=== PATIENT | male | born 1990 ===

== ENCOUNTER 2017-12-04 11:53 | Emergency (ER) | payer OTHER ==
[2017-12-04 12:05] VITALS: BMI 25.7
[2017-12-04 12:07] VITALS: BP 115/68; PULSE 56; RESP 20; TEMP 98.3; O2SAT 99
--- NOTE | 2017-12-04 13:02 | ED PDOC ---
HPI: Chest Pain Time Seen by Provider: 12/04/17 12:28 Chief Complaint (Nursing): Chest Pain Chief Complaint (Provider): Rib pain History Per: Patient History/Exam Limitations: no limitations Additional Complaint(s): Pt states he was elbowed one week ago while playing soccer, presents pain to L chest wall, worse with deep breaths, has not taken medication for pain. Denies fever, cough, SOB. Past Medical History Reviewed: Nursing Documentation, Vital Signs Vital Signs: Last Vital Signs Temp 98.3 F 12/04/17 12:06 Pulse 56 L 12/04/17 12:06 Resp 20 12/04/17 12:06 BP 115/68 12/04/17 12:06 Pulse Ox 99 12/04/17 13:03 - Medical History PMH: No Chronic Diseases - Family History Family History: States: Unknown Family Hx - Social History Current smoker - smoking cessation education provided: No Alcohol: None - Home Medications Home Medications: Ambulatory Orders Medication Instructions Recorded Naproxen [Naprosyn] 500 mg PO BID PRN #15 tablet 12/04/17 - Allergies Allergies/Adverse Reactions: Allergies Allergy/AdvReac Type Severity Reaction Status Date / Time No Known Allergies Allergy Verified 12/04/17 12:45 Review of Systems Constitutional: Negative for: Fever, Chills Cardiovascular: Positive for: Chest Pain (Chest wall). Negative for: Palpitations Respiratory: Negative for: Cough, Shortness of Breath Musculoskeletal: Negative for: Neck Pain, Back Pain Skin: Negative for: Rash, Lesions Neurological: Negative for: Headache Physical Exam - Reviewed Nursing Documentation Reviewed: Yes Vital Signs Reviewed: Yes - Physical Exam Appears: Positive for: Well, No Acute Distress Head Exam: Positive for: ATRAUMATIC, NORMAL INSPECTION Skin: Positive for: Normal Color, Warm, Dry Eye Exam: Positive for: Normal appearance, EOMI, PERRL Cardiovascular/Chest: Positive for: Regular Rate, Rhythm. Negative for: Chest Non Tender (TTP inferior to L nipple) Respiratory: Positive for: Normal Breath Sounds Extremity: Positive for: Normal ROM Neurologic/Psych: Positive for: Alert, Oriented - ECG O2 Sat by Pulse Oximetry: 99 Medical Decision Making Medical Decision Makin yo male with L sided chest wall pain. - XR L ribs - Toradol Accession No. : [id number] Patient Name / ID : KELLY [id number] / [id number] Exam Date : 12/04/2017 13:01:08 ( Approved ) Study Comment : Sex / Age : M / 27Y Creator : Tayo Nelson MD Dictator : Tayo Nelson MD Sleeve Bottom Feller : After School Counselor : Tayo Nelson MD Approver2 : Report Date : 12/04/2017 19:26:40 My Comment : PROCEDURE: Radiographs of the Chest and Left Ribs. HISTORY: L anterior rib pain COMPARISON: None available. TECHNIQUE: Frontal radiograph of the chest and multiple oblique radiographs of the left ribs were obtained. FINDINGS: LEFT RIBS: No fracture or focal lesion visualized. LUNGS: Clear. PLEURA: No pneumothorax or pleural fluid. CARDIOVASCULAR: Normal sized heart. No pulmonary vascular congestion. OTHER FINDINGS: None. IMPRESSION: Unremarkable radiographs of the chest and left ribs. No left rib fracture. Disposition - Clinical Impression Clinical Impression: Chest wall contusion - Disposition Referrals: [facility] [place] [Outside] Disposition: Routine/Home Disposition Time: 14:25 Condition: GOOD Prescriptions: Naproxen [Naprosyn] 500 mg PO BID PRN #15 tablet PRN Reason: Pain, Moderate (4-7) Instructions: Bruised Rib Forms: [employer] ([place]) Print Language: JAPANESE
--- NOTE | 2017-12-04 19:28 | RAD ---
PROCEDURE: Radiographs of the Chest and Left Ribs. HISTORY: L anterior rib pain COMPARISON: None available. TECHNIQUE: Frontal radiograph of the chest and multiple oblique radiographs of the left ribs were obtained. FINDINGS: LEFT RIBS: No fracture or focal lesion visualized. LUNGS: Clear. PLEURA: No pneumothorax or pleural fluid. CARDIOVASCULAR: Normal sized heart. No pulmonary vascular congestion. OTHER FINDINGS: None. IMPRESSION: Unremarkable radiographs of the chest and left ribs. No left rib fracture.
== END 2017-12-04 15:23 | disposition home or self-care (01) ==
LOC: H.ER 11:53 → SUPCPDRO 11:53 → H.ER 15:23
DX: S20.219A Contusion of unspecified front wall of thorax, initial encounter (principal); W50.0XXA Accidental hit or strike by another person, initial encounter; Y93.66 Activity, soccer
CPT/HCPCS: 71101; 96374; 99283; J1885